=== PATIENT | male | born 1965 | race Two or more races ===

== ENCOUNTER 2018-12-22 03:17 | Emergency (ER) | payer BC, OTHER ==
[2018-12-22] MEDS: Morphine 5 MG/ML SDV IVPUSH ONE (03:59)
[2018-12-22] MEDS: Morphine 10 MG/ML Syringe IVPUSH ONE (04:12)
[2018-12-22] MEDS: HYDROmorphone 2 MG/ML Syringe IVPUSH ONE ×3 (04:34→07:07)
[2018-12-22] MEDS ORDERED: HYDROmorphone 2 MG/ML Syringe IVPUSH ONE (06:28)
[2018-12-22] MEDS: Ketorolac 60 MG/2 ML SDV IVPUSH ONE (06:30)
[2018-12-22] MEDS: Ketorolac 60 MG/2 ML SDV ONE (06:40)
[2018-12-22] MEDS: HYDROmorphone 2 MG/ML SDV ONE (06:41)
[2018-12-22] MEDS: Piperacillin/Tazobactam 4.5 GM in Sodium Chloride 0.9% 100 ML IV ONE (06:41)
--- NOTE | 2018-12-22 06:56 | EDM.PDOC ---
ED HPI GENERAL MEDICAL PROBLEM - General Chief Complaint: General Stated Complaint: ABD AND BACK PAIN Time Seen by Provider: 12/22/18 03:45 Source of Information: Reports: Patient History Limitations: Reports: No Limitations - History of Present Illness INITIAL COMMENTS - FREE TEXT/NARRATIVE: This is a 53yo M here for acute abdominal pain that started around midnight and never improved. The pain worsened to 10/10 and then he came in prior to 4am. He states the pain is constant and worsening with radiation to the back. He has a history of back pain as well. He cannot get comfortable. He has family history with 2 members with prior cholecystectomy. He has not eaten anything since last night. He has never had a previous abdominal pain like this. Onset: Gradual Duration: Hour(s):, Getting Worse Location: Reports: Abdomen Severity: Severe Improves with: Reports: None Worsens with: Reports: None Associated Symptoms: Reports: No Other Symptoms - Related Data Allergies Allergy/AdvReac Type Severity Reaction Status Date / Time shellfish derived Allergy Hives Verified 12/22/18 04:09 Home Meds: Home Meds NK [No Known Home Meds] 07/17/18 [History] Past Medical History - Past Health History Medical/Surgical History: Denies Medical/Surgical History Cardiovascular History: Reports: None Respiratory History: Reports: Asthma Other Respiratory History: asthma as youth Gastrointestinal History: Reports: None Other Musculoskeletal History: L knee arthritis, fx a few fingers, seperated R shoulder Hematologic History: Reports: None Oncologic (Cancer) History: Reports: None - Infectious Disease History Infectious Disease History: Reports: Chicken Pox, Measles, Mumps - Past Surgical History Other HEENT Surgeries/Procedures: glasses in place Other Cardiovascular Surgeries/Procedures: dad- CHF Respiratory Surgical History: Reports: None GI Surgical History: Reports: Appendectomy Male Surgical History: Reports: None Other Endocrine Surgeries/Procedures: family hx of DM Musculoskeletal Surgical History: Reports: Knee Replacement Other Musculoskeletal Surgeries/Procedures:: LBP, years ago numbness into the left LE. L TKA 2017 Oncologic Surgical History: Reports: None Social & Family History - Family History Family Medical History: Noncontributory ED ROS GENERAL - Review of Systems Review Of Systems: ROS reveals no pertinent complaints other than HPI. Constitutional: Reports: Diaphoresis HEENT: Reports: No Symptoms Respiratory: Reports: No Symptoms Cardiovascular: Reports: No Symptoms Endocrine: Reports: No Symptoms GI/Abdominal: Reports: Abdominal Pain, Decreased Appetite : Reports: No Symptoms Musculoskeletal: Reports: Back Pain Skin: Reports: No Symptoms Neurological: Reports: No Symptoms ED EXAM, GENERAL - Physical Exam Exam: See Below Exam Limited By: No Limitations General Appearance: Alert, WD/WN, Moderate Distress Eye Exam: Bilateral Eye: EOMI, PERRL Ears: Normal External Exam Nose: Normal Inspection Throat/Mouth: Normal Inspection Head: Atraumatic, Normocephalic Neck: Normal Inspection, Supple, Non-Tender Respiratory/Chest: No Respiratory Distress, Lungs Clear Cardiovascular: Normal Peripheral Pulses, Regular Rate, Rhythm Peripheral Pulses: 2+: Dorsalis Pedis (L), Dorsalis Pedis (R) GI/Abdominal: Tender Back Exam: Paraspinal Tenderness Extremities: Normal Inspection, Normal Range of Motion, Non-Tender Neurological: Alert, Oriented, CN II-XII Intact Course - Vital Signs Last Recorded V/S: Last Vital Signs Temp 36.6 C 12/22/18 06:49 Pulse 89 12/22/18 06:49 Resp 19 12/22/18 06:49 BP 166/115 H 12/22/18 06:49 Pulse Ox 99 12/22/18 06:49 - Orders/Labs/Meds Orders: Active Orders 24 hr Category Date Time Status Abdomen Pelvis wo Cont [CT] Stat Exams 12/22/18 03:46 Taken Labs: Laboratory Tests 12/22/18 12/22/18 12/22/18 Range/Units 04:00 04:00 04:00 WBC 12.3 H D (4.0-11.0) K/uL RBC 5.12 (4.50-6.50) M/uL Hgb 15.7 (13.0-18.0) g/dL Hct 44.5 (40.0-54.0) % MCV 87 (76-96) fL MCH 30.7 (27.0-32.0) pg MCHC 35.3 H (31.0-35.0) g/dL RDW 13.1 (11.0-16.0) % Plt Count 281 (150-400) K/uL MPV 9.9 (6.0-10.0) fL Neut % (Auto) 80.4 H (45.0-70.0) % Lymph % (Auto) 13.9 L (20.0-40.0) % [place] % (Auto) 4.2 (3.0-10.0) % Eos % (Auto) 0.5 L (1.0-5.0) % Baso % (Auto) 1.0 H (0.0-0.5) % Neut # (Auto) 9.88 H (2.00-7.50) K/uL Lymph # (Auto) 1.70 (1.50-4.00) K/uL [place] # (Auto) 0.51 (0.20-0.80) K/uL Eos # (Auto) 0.06 (0.04-0.40) K/uL Baso # (Auto) 0.12 H (0.02-0.10) K/uL Sodium 140 (136-145) mmol/L Potassium 4.1 (3.5-5.1) mmol/L Chloride 101 (98-107) mmol/L Carbon Dioxide 25.4 (21.0-32.0) mmol/L Anion Gap 17.7 H (5.0-15.0) mmol/L BUN 21 (8-26) mg/dL Creatinine 0.98 (0.70-1.30) mg/dL Est Cr Clr Drug Dosing TNP Estimated GFR (MDRD) > 60 (>60) MLS/MIN BUN/Creatinine Ratio 21.4 (6-25) Glucose 160 H D (74-100) mg/dL Lactic Acid (0.90-1.70) mmol/L Calcium 8.8 (8.5-10.1) mg/dL Total Bilirubin 1.2 H (0.0-1.0) mg/dL AST 14 L (15-37) U/L ALT 28 (12-78) U/L Alkaline Phosphatase 79 (46-116) U/L Total Protein 8.1 (6.4-8.2) g/dL Albumin 4.5 (3.4-5.0) g/dL Globulin 3.6 (2.2-4.2) g/dL Albumin/Globulin Ratio 1.2 (0.8-2.0) Lipase 94 (73-393) U/L 12/22/18 Range/Units 04:00 WBC (4.0-11.0) K/uL RBC (4.50-6.50) M/uL Hgb (13.0-18.0) g/dL Hct (40.0-54.0) % MCV (76-96) fL MCH (27.0-32.0) pg MCHC (31.0-35.0) g/dL RDW (11.0-16.0) % Plt Count (150-400) K/uL MPV (6.0-10.0) fL Neut % (Auto) (45.0-70.0) % Lymph % (Auto) (20.0-40.0) % [place] % (Auto) (3.0-10.0) % Eos % (Auto) (1.0-5.0) % Baso % (Auto) (0.0-0.5) % Neut # (Auto) (2.00-7.50) K/uL Lymph # (Auto) (1.50-4.00) K/uL [place] # (Auto) (0.20-0.80) K/uL Eos # (Auto) (0.04-0.40) K/uL Baso # (Auto) (0.02-0.10) K/uL Sodium (136-145) mmol/L Potassium (3.5-5.1) mmol/L Chloride (98-107) mmol/L Carbon Dioxide (21.0-32.0) mmol/L Anion Gap (5.0-15.0) mmol/L BUN (8-26) mg/dL Creatinine (0.70-1.30) mg/dL Est Cr Clr Drug Dosing Estimated GFR (MDRD) (>60) MLS/MIN BUN/Creatinine Ratio (6-25) Glucose (74-100) mg/dL Lactic Acid 2.06 H (0.90-1.70) mmol/L Calcium (8.5-10.1) mg/dL Total Bilirubin (0.0-1.0) mg/dL AST (15-37) U/L ALT (12-78) U/L Alkaline Phosphatase (46-116) U/L Total Protein (6.4-8.2) g/dL Albumin (3.4-5.0) g/dL Globulin (2.2-4.2) g/dL Albumin/Globulin Ratio (0.8-2.0) Lipase (73-393) U/L Meds: Medications Discontinued Medications Generic Name Dose Route Start Last Admin Trade Name Freq PRN Reason Stop Dose Admin Hydromorphone HCl 1 mg 12/22/18 04:34 12/22/18 04:34 Dilaudid IVPUSH 12/22/18 04:35 1 mg ONETIME ONE Administration Hydromorphone HCl 1 mg 12/22/18 05:07 12/22/18 05:07 Dilaudid IVPUSH 12/22/18 05:08 1 mg ONETIME ONE Administration Hydromorphone HCl 1 mg 12/22/18 06:18 Dilaudid IVPUSH 12/22/18 06:19 ONETIME ONE Hydromorphone HCl Confirm 12/22/18 06:29 12/22/18 06:41 Dilaudid Administered 12/22/18 06:30 Not Given Dose 2 mg .ROUTE .STK-MED ONE Hydromorphone HCl 1 mg 12/22/18 06:28 Dilaudid IVPUSH 12/22/18 06:29 ONETIME ONE Piperacillin Sod/Tazobactam 100 mls @ 200 mls/hr 12/22/18 06:19 12/22/18 06: 41 Sod 4.5 gm/ Sodium Chloride IV 12/22/18 06:48 200 mls/hr ONETIME ONE Administration Ketorolac Tromethamine Confirm 12/22/18 06:29 12/22/18 06:40 Toradol Administered 12/22/18 06:30 Not Given Dose 60 mg .ROUTE .STK-MED ONE Ketorolac Tromethamine 60 mg 12/22/18 06:27 12/22/18 06:30 Toradol IVPUSH 12/22/18 06:28 60 mg ONETIME ONE Administration Morphine Sulfate 5 mg 12/22/18 04:09 12/22/18 04:12 Morphine IVPUSH 12/22/18 04:10 Not Given ONETIME ONE Morphine Sulfate 3 mg 12/22/18 04:11 12/22/18 03:59 Morphine IVPUSH 12/22/18 04:12 3 mg ONETIME ONE Administration Departure - Departure Time of Disposition: 07:00 Disposition: DC/Tfer to Acute Hospital 02 Condition: Undetermined Clinical Impression: Acute cholecystitis due to biliary calculus - Discharge Information Referrals: PCP,None [Primary Care Provider] - - Problem List & Annotations (1) Acute cholecystitis due to biliary calculus SNOMED Code(s): 42505861129874 Code(s): K80.00 - CALCULUS OF GALLBLADDER W ACUTE CHOLECYST W/O OBSTRUCTION Status: Acute Priority: High Current Visit: Yes - Problem List Review Problem List Initiated/Reviewed/Updated: Yes - My Orders Last 24 Hours: My Active Orders 12/22/18 03:46 Abdomen Pelvis wo Cont [CT] Stat - Assessment/Plan Last 24 Hours: My Active Orders 12/22/18 03:46 Abdomen Pelvis wo Cont [CT] Stat Plan: Patient to be transferred to [facility]. Discussed with [facility] and they do not have bed available and ER physician did not recommend waiting for a bed due to acute disease and recommended transfer as soon as possible. Accepting Dr. Max - hannah Meier initial course. Patient agrees with plan of care and management.
[2018-12-22 07:09] VITALS: BP 192/123
--- NOTE | 2018-12-22 10:28 | CT ---
DATE OF SERVICE: 12/22/2018 CLINICAL DATA: Abdominal pain. UNENHANCED ABDOMEN AND PELVIC CT: Multislice acquisition through the abdomen and pelvis without IV or oral contrast was performed. There is a linear density in the right middle lobe consistent with linear atelectasis or fibrosis. The lung bases are otherwise clear. There is gas noted within the distal esophagus. This is most likely related to GE reflux. The liver is normal size with homogeneous attenuation. No focal hepatic lesions. There are multiple small gallstones noted within the gallbladder. No pericholecystic fluid. The spleen appears normal. The pancreas appears normal. The right and left adrenals appear normal. The right and left kidneys appear normal. No nephrocalcinosis or nephrolithiasis. No hydronephrosis or hydroureter. There is a small amount of fluid within the bladder. It appears normal. The prostate is mildly enlarged. No evidence of appendicitis. No free air. No free fluid. No dilated loops of bowel. No adenopathy. No aortic aneurysm. IMPRESSION: Cholelithiasis. Other findings as discussed above. [id number] [facility]
== END 2018-12-22 07:10 ==
LOC: LB.ED 03:17
DX: K80.00 Calculus of gallbladder with acute cholecystitis without obstruction (principal); Z91.013 Allergy to seafood
CPT/HCPCS: 36415; 74176; 80053; 83605; 83690; 85025; 96374; 96375; 96376; 99285-25; A0425; A0429; J1170; J1885; J2270; J2543; J7030

== ENCOUNTER 2024-10-07 09:57 | Day surgery (SDC) | payer OTHER, BC ==
[~2024-10-07 09:57] MED LIST: Metoclopramide 10 MG/2 ML SDV IV PRN; Sodium Chloride 0.9% 1,000 ML IV SCH
[2024-10-07] MEDS: Sodium Chloride 0.9% 1,000 ML IV SCH (10:38)
[2024-10-07 12:27] VITALS: BP 121/85; PULSE 71
== END 2024-10-07 13:14 | disposition home or self-care (01) ==
LOC: LB.SDS 09:57
PROVIDERS: ATTEND Surgery
DX: Z12.11 Encounter for screening for malignant neoplasm of colon (principal); K57.30 Diverticulosis of large intestine without perforation or abscess without bleeding; I10 Essential (primary) hypertension; Z91.013 Allergy to seafood
CPT/HCPCS: J7030